=== PATIENT | male | born 1980 | race Caucasian/White ===

== ENCOUNTER 2023-04-18 17:27 | Emergency (ER) | payer BC ==
[~2023-04-18] VITALS: Ht 175.3 cm; Wt 61.2 kg
[2023-04-18 17:42] VITALS: BP 123/67; PULSE 70; RESP 15; TEMP 99; O2SAT 96
[2023-04-18] MEDS: LIDOCAINE MPF 1% 10 MG/ML VIAL INJ ONE (18:02)
[2023-04-18] MEDS ORDERED: BACI-418 TP (18:23)
[2023-04-18] MEDS ORDERED: ACET-10509 PO (18:23)
[2023-04-18 18:49] VITALS: BP 121/67; PULSE 73; RESP 18; TEMP 98; O2SAT 99
== END 2023-04-18 18:51 | disposition home or self-care (01) ==
LOC: MED 17:27
DX: S81.011A Laceration without foreign body, right knee, initial encounter (principal); Z79.899 Other long term (current) drug therapy; W26.8XXA Contact with other sharp object(s), not elsewhere classified, initial encounter; Y93.89 Activity, other specified; Y92.89 Other specified places as the place of occurrence of the external cause; Y99.8 Other external cause status
CPT/HCPCS: 12002; 99282; J2001; 99283

== ENCOUNTER 2023-04-20 11:53 | Emergency (ER) | payer BC ==
[~2023-04-20] VITALS: Ht 175.3 cm; Wt 61.2 kg
[~2023-04-20 11:53] MED LIST: ACET-10509 PO; BACI-418 TP
[2023-04-20 12:12] VITALS: BP 121/67; PULSE 65; RESP 18; TEMP 96.8; O2SAT 97
== END 2023-04-20 13:33 | disposition home or self-care (01) ==
LOC: MED 11:53
DX: S81.011A Laceration without foreign body, right knee, initial encounter (principal); Z48.00 Encounter for change or removal of nonsurgical wound dressing; Z79.899 Other long term (current) drug therapy; X58.XXXD Exposure to other specified factors, subsequent encounter; Y93.89 Activity, other specified; Y92.89 Other specified places as the place of occurrence of the external cause; Y99.8 Other external cause status
CPT/HCPCS: 90471; 90715; 99283